=== PATIENT | male | born 1995 | race Caucasian/White ===

== ENCOUNTER 2016-05-16 21:07 | Emergency (ER) | payer OTHER ==
[~2016-05-16] VITALS: Ht 175.3 cm; Wt 92.0 kg
[2016-05-16 21:09] VITALS: BP 137/77; PULSE 65; RESP 16; TEMP 97.8; O2SAT 98
[2016-05-16 22:08] VITALS: O2SAT 99
--- NOTE | 2016-05-16 22:12 | PD ---
HPI Chief Complaint: Chest Pain Time Seen by Provider: 21:58 Travel History International Travel<30 days: Yes Contact w/Intl Traveler<30days: Yes Name of Country Traveled to: [place] Traveled to known affect area: No History of Present Illness HPI The patient is a 20-year-old male who presents emergency department for chest pain. The chest pain is intermittent, sharp, lasts only seconds. The pain is located just lateral and left of the sternal border. Patient denies any precipitating or alleviating factors. The patient states the pain can happen at any time and is not related to exertion, position, or movement. The patient denies any shortness of breath, nausea, vomiting, or abdominal pain. 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 He denies taking any current cardiac medications. The patient denies any history of pulmonary embolism or DVT. The patient denies any fever, chills, or sweats. The patient is currently chest pain-free. The patient denies any trauma to the chest wall. PFSH Past Medical History Narrative Medical WPW Past Surgical History Narrative Surgical 3 previous cardiac ablations Social History Tobacco Use: No Allergies-Medications (Allergen,Severity, Reaction): Coded Allergies: No Known Allergies (Unverified , 05/16/16) Review of Systems Except as stated in HPI: all other systems reviewed are Neg General / Constitutional: No: Fever, Chills HENT: No: Lightheadedness Cardiovascular: Positive: Chest Pain or Discomfort, No: Dyspnea on exertion Respiratory: No: Cough, Shortness of Breath Gastrointestinal: No: Nausea, Vomiting, Abdominal Pain Genitourinary: No: Dysuria Musculoskeletal: No: Edema Skin: No Rash Neurologic: No: Dizziness Physical Exam Narrative GENERAL: Awake, alert, nontoxic-appearing 20-year-old male who appears his stated age and is in no acute respiratory distress. SKIN: Warm and dry. No stigmata of shingles noted. HEAD: Atraumatic. Normocephalic. EYES: Pupils equal and round. No scleral icterus. No injection or drainage. ENT: No nasal bleeding or discharge. Mucous membranes pink and moist. NECK: Trachea midline. No JVD. CARDIOVASCULAR: Regular rate and rhythm. No murmur appreciated. Palpation of the chest wall does not reproduce symptoms. RESPIRATORY: No accessory muscle use. Clear to auscultation. Breath sounds equal bilaterally. GASTROINTESTINAL: Abdomen soft, minimal epigastric tenderness. No rebound tenderness. MUSCULOSKELETAL: No obvious deformities. No clubbing. No cyanosis. No edema. NEUROLOGICAL: Awake and alert. No obvious cranial nerve deficits. Motor grossly within normal limits. Normal speech. PSYCHIATRIC: Appropriate mood and affect; insight and judgment normal. Data Data Last Documented VS Vital Signs Date Time Temp Pulse Resp B/P Pulse Ox O2 Delivery O2 Flow Rate FiO2 05/16/16 22:08 99 Room Air 05/16/16 21:09 97.8 65 16 137/77 Orders Electrocardiogram (05/16/16 22:04) Basic Metabolic Panel (Bmp) (05/16/16 22:04) Ckmb (Isoenzyme) Profile (05/16/16 22:04) Complete Blood Count With Diff (05/16/16 22:04) Magnesium (Mg) (05/16/16 22:04) Prothrombin Time / Inr (Pt) (05/16/16 22:04) Act Partial Throm Time (Ptt) (05/16/16 22:04) Troponin I (05/16/16 22:04) Chest, Single Ap (05/16/16 22:04) Ecg Monitoring (05/16/16 22:04) Iv Access Insert/Monitor (05/16/16 22:04) Oximetry (05/16/16 22:04) Oxygen Administration (05/16/16 22:04) Sodium Chloride 0.9% Flush (Ns Flush) (05/16/16 22:15) Lipase (05/16/16 22:10) CKMB (05/16/16 22:10) CKMB% (05/16/16 22:10) Labs Laboratory Tests Test 05/16/16 22:10 White Blood Count 7.2 TH/MM3 Red Blood Count 5.05 MIL/MM3 Hemoglobin 14.2 GM/DL Hematocrit 41.1 % Mean Corpuscular Volume 81.5 FL Mean Corpuscular Hemoglobin 28.1 PG Mean Corpuscular Hemoglobin 34.6 % Concent Red Cell Distribution Width 12.2 % Platelet Count 252 TH/MM3 Mean Platelet Volume 7.8 FL Neutrophils (%) (Auto) 59.1 % Lymphocytes (%) (Auto) 26.9 % Monocytes (%) (Auto) 11.0 % Eosinophils (%) (Auto) 2.1 % Basophils (%) (Auto) 0.9 % Neutrophils # (Auto) 4.2 TH/MM3 Lymphocytes # (Auto) 1.9 TH/MM3 Monocytes # (Auto) 0.8 TH/MM3 Eosinophils # (Auto) 0.1 TH/MM3 Basophils # (Auto) 0.1 TH/MM3 CBC Comment DIFF FINAL Differential Comment Prothrombin Time 11.7 SEC Prothromb Time International 1.1 RATIO Ratio Activated Partial 30.7 SEC Thromboplast Time Sodium Level 139 MEQ/L Potassium Level 4.1 MEQ/L Chloride Level 104 MEQ/L Carbon Dioxide Level 28.5 MEQ/L Anion Gap 7 MEQ/L Blood Urea Nitrogen 9 MG/DL Creatinine 0.88 MG/DL Estimat Glomerular Filtration 109 ML/MIN Rate Random Glucose 98 MG/DL Calcium Level 9.0 MG/DL Magnesium Level 2.2 MG/DL Total Creatine Kinase 145 U/L Creatine Kinase MB 1.1 NG/ML Troponin I LESS THAN 0.02 NG/ML Lipase 133 U/L [facility] Medical Decision Making Medical Screen Exam Complete: Yes Emergency Medical Condition: Yes Medical Record Reviewed: Yes Interpretation(s) EKG reveals sinus rhythm with sinus arrhythmia. Questionable delta waves with moderate intraventricular conduction delay. Short HI interval, however, no inverted T waves except for lead 3. Possible LGL versus WPW. Laboratory Tests Test 05/16/16 22:10 White Blood Count 7.2 TH/MM3 Red Blood Count 5.05 MIL/MM3 Hemoglobin 14.2 GM/DL Hematocrit 41.1 % Mean Corpuscular Volume 81.5 FL Mean Corpuscular Hemoglobin 28.1 PG Mean Corpuscular Hemoglobin 34.6 % Concent Red Cell Distribution Width 12.2 % Platelet Count 252 TH/MM3 Mean Platelet Volume 7.8 FL Neutrophils (%) (Auto) 59.1 % Lymphocytes (%) (Auto) 26.9 % Monocytes (%) (Auto) 11.0 % Eosinophils (%) (Auto) 2.1 % Basophils (%) (Auto) 0.9 % Neutrophils # (Auto) 4.2 TH/MM3 Lymphocytes # (Auto) 1.9 TH/MM3 Monocytes # (Auto) 0.8 TH/MM3 Eosinophils # (Auto) 0.1 TH/MM3 Basophils # (Auto) 0.1 TH/MM3 CBC Comment DIFF FINAL Differential Comment Prothrombin Time 11.7 SEC Prothromb Time International 1.1 RATIO Ratio Activated Partial 30.7 SEC Thromboplast Time Sodium Level 139 MEQ/L Potassium Level 4.1 MEQ/L Chloride Level 104 MEQ/L Carbon Dioxide Level 28.5 MEQ/L Anion Gap 7 MEQ/L Blood Urea Nitrogen 9 MG/DL Creatinine 0.88 MG/DL Estimat Glomerular Filtration 109 ML/MIN Rate Random Glucose 98 MG/DL Calcium Level 9.0 MG/DL Magnesium Level 2.2 MG/DL Total Creatine Kinase 145 U/L Creatine Kinase MB 1.1 NG/ML Troponin I LESS THAN 0.02 NG/ML Lipase 133 U/L Chest x-rays unremarkable Differential Diagnosis Differential diagnosis includes pericarditis, myocarditis, arrhythmia, pleurisy , costochondritis, pulmonary embolism, pneumonia, GERD, pancreatitis. Narrative Course IV was established, labs are drawn and sent, and the patient was placed on cardiac telemetry monitoring and continuous pulse oximetry monitoring. EKG was ordered and interpreted. Chest x-ray was ordered. The patient's heart rate was within normal limits in the 60s, O2 saturation was normal, do not believe the patient has a pulmonary embolism. Therefore, no d-dimer or CT pulmonary angiogram was ordered. Troponin is negative, CPK is negative, electrolytes are normal. Chest x-rays unremarkable. Patient is medically clear to be evaluated on an outpatient basis. Diagnosis Primary Impression: Atypical chest pain Patient Instructions: General Instructions Additional Instructions: Follow-up with your primary physician. Return if symptoms worsen or progress. Please provide the patient a copy of his EKG, chest x-ray report, and labs at discharge. Return if symptoms worsen or progress. Med/Other Pt SpecificInfo: No Change to Meds Disposition: 01 DISCHARGE HOME Condition: Stable Sahil Hamilton MD May 16, 2016 22:12
[2016-05-16] MEDS ORDERED: SODIUM CHLORIDE 0.9% FLUSH 5 ML FLUSH IVF PRN (22:15)
--- NOTE | 2016-05-16 22:22 | RADRPT ---
EXAM DATE/TIME: 05/16/2016 22:14 [facility] COMPARISON: No previous studies available for comparison. INDICATIONS : Chest pain. MEDICAL HISTORY : None. SURGICAL HISTORY : Heart ablation. ENCOUNTER: Initial ACUITY: 3 days PAIN SCORE: 10/10 LOCATION: Bilateral chest FINDINGS: A single view of the chest demonstrates the lungs to be symmetrically aerated without evidence of mas s, infiltrate or effusion. The cardiomediastinal contours are unremarkable. Osseous structures are intact. CONCLUSION: Normal examination. Tobin Montalvo MD on May 16, 2016 at 22:20 Board Certified Radiologist. This report was verified electronically.
[2016-05-16 22:45] LABS: AUTOMATED NEUTROPHIL # 4.2 TH/MM3 (1.8-7.7); BASOPHIL # 0.1 TH/MM3 (0-0.2); BASOPHIL % 0.9 % (0.0-2.0); EOSINOPHIL # 0.1 TH/MM3 (0-0.4); EOSINOPHIL % 2.1 % (0.0-4.0); HEMATOCRIT 41.1 % (39.0-51.0); HEMO FLAGS DIFF FINAL; LYMPH % 26.9 % (9.0-44.0); LYMPHOCYTE # 1.9 TH/MM3 (1.0-4.8); MEAN CELL VOLUME 81.5 FL (80.0-100.0); MEAN CORPUSCULAR HEMOGLOBIN 28.1 PG (27.0-34.0); MEAN CORPUSCULAR HGB CONC 34.6 % (32.0-36.0); NEUT % 59.1 % (16.0-70.0); PLATELET COUNT 252 TH/MM3 (150-450); RED BLOOD COUNT 5.05 MIL/MM3 (4.50-5.90); RED CELL DISTRIBUTION WIDTH 12.2 % (11.6-17.2); WHITE BLOOD COUNT 7.2 TH/MM3 (4.0-11.0)
[2016-05-16 22:56] LABS: APTT (PATIENT) 30.7 SEC (24.3-30.1); INTERNATIONAL NORMALIZED RATIO 1.1 RATIO; PROTHROMBIN TIME - PATIENT 11.7 SEC (9.8-11.6)
[2016-05-16 23:05] LABS: ANION GAP 7 MEQ/L (5-15); BICARBONATE 28.5 MEQ/L (21.0-32.0); BLOOD UREA NITROGEN 9 MG/DL (7-18); CHLORIDE 104 MEQ/L (98-107); GLOMERULAR FILTRATION RATE 109 ML/MIN (>89); MAGNESIUM 2.2 MG/DL (1.5-2.5); POTASSIUM 4.1 MEQ/L (3.5-5.1); SODIUM (NA) 139 MEQ/L (136-145)
[2016-05-16 23:10] LABS: CREATINE KINASE 145 U/L (39-308)
[2016-05-16 23:22] LABS: CKMB 1.1 NG/ML (0.5-3.6)
--- NOTE | 2016-05-17 22:33 | EKG ---
Date Performed: 05/16/2016 Time Performed: 22:07:36 PTAGE: 20 years EKG: Sinus rhythm WITH SINUS ARRHYTHMIA MODERATE INTRAVENTRICULAR CONDUCTION DELAY BORDERLINE ECG NO PREVIOUS TRACING DOCTOR: Chapo Kaur Interpretating Date/Time 05/17/2016 22:30:09
== END 2016-05-17 00:03 | disposition home or self-care (01) ==
LOC: NEPD 21:07
DX: R07.89 Other chest pain (principal); I49.8 Other specified cardiac arrhythmias
CPT/HCPCS: 71010; 80048; 82550; 82552; 83690; 83735; 84484; 85025; 85610; 85730; 93005